=== PATIENT | female | born 1980 | race Caucasian/White ===

== ENCOUNTER → 2017-05-01 | Outpatient (CLI) | payer SELFPAY | LOC: BHSO 12:52 | DX: F41.0 Panic disorder [episodic paroxysmal anxiety] (principal) | CPT/HCPCS: 90791-AI ==

== ENCOUNTER → 2017-10-19 | Outpatient (CLI) | payer BC | LOC: BHSO 08:04 | DX: F33.1 Major depressive disorder, recurrent, moderate (principal) | CPT/HCPCS: G0463 ==

== ENCOUNTER → 2017-11-05 | Outpatient (CLI) | payer BC | LOC: BHSO 15:58 | DX: F41.1 Generalized anxiety disorder (principal) ==

== ENCOUNTER → 2017-11-12 | Outpatient (CLI) | payer BC | LOC: BHSO 08:01 | DX: F41.1 Generalized anxiety disorder (principal) ==

== ENCOUNTER → 2017-11-26 | Outpatient (CLI) | payer BC | LOC: BHSO 08:03 | DX: F33.41 Major depressive disorder, recurrent, in partial remission (principal) | CPT/HCPCS: G0463 ==

== ENCOUNTER → 2017-12-25 | Outpatient (CLI) | payer BC | LOC: BHSO 08:02 | DX: F40.10 Social phobia, unspecified (principal) ==

== ENCOUNTER → 2018-01-22 | Outpatient (CLI) | payer BC | LOC: BHSO 08:04 | DX: F40.10 Social phobia, unspecified (principal) ==

== ENCOUNTER → 2018-02-05 | Outpatient (CLI) | payer BC | LOC: BHSO 08:21 | DX: F41.1 Generalized anxiety disorder (principal) | CPT/HCPCS: G0463 ==

== ENCOUNTER → 2018-02-12 | Outpatient (CLI) | payer BC | LOC: BHSO 08:42 | DX: F40.10 Social phobia, unspecified (principal) ==

== ENCOUNTER → 2018-03-05 | Outpatient (CLI) | payer BC | LOC: BHSO 08:02 | DX: F40.10 Social phobia, unspecified (principal) ==

== ENCOUNTER → 2018-04-09 | Outpatient (CLI) | payer BC | LOC: BHSO 08:04 | DX: F40.10 Social phobia, unspecified (principal) ==

== ENCOUNTER → 2018-04-30 | Outpatient (CLI) | payer BC | LOC: BHSO 08:02 | DX: F40.10 Social phobia, unspecified (principal) ==

== ENCOUNTER → 2018-05-14 | Outpatient (CLI) | payer BC | LOC: BHSO 08:22 | DX: F33.1 Major depressive disorder, recurrent, moderate (principal) | CPT/HCPCS: G0463 ==

== ENCOUNTER → 2018-05-28 | Outpatient (CLI) | payer BC | LOC: BHSO 08:01 | DX: F40.10 Social phobia, unspecified (principal) ==

== ENCOUNTER → 2018-06-11 | Outpatient (CLI) | payer BC | LOC: BHSO 08:08 | DX: F40.10 Social phobia, unspecified (principal) ==

== ENCOUNTER → 2018-07-02 | Outpatient (CLI) | payer BC | LOC: BHSO 08:00 | DX: F41.0 Panic disorder [episodic paroxysmal anxiety] (principal) ==

== ENCOUNTER → 2018-07-16 | Outpatient (CLI) | payer BC | LOC: BHSO 08:26 | DX: F33.41 Major depressive disorder, recurrent, in partial remission (principal) | CPT/HCPCS: G0463 ==

== ENCOUNTER → 2018-08-06 | Outpatient (CLI) | payer BC | LOC: BHSO 08:05 | DX: F40.10 Social phobia, unspecified (principal) ==

== ENCOUNTER → 2018-08-20 | Outpatient (CLI) | payer BC | LOC: BHSO 08:12 | DX: F40.10 Social phobia, unspecified (principal) ==

== ENCOUNTER → 2018-08-27 | Outpatient (CLI) | payer BC | LOC: BHSO 08:32 | DX: F40.10 Social phobia, unspecified (principal) ==

== ENCOUNTER → 2018-09-10 | Outpatient (CLI) | payer BC | LOC: BHSO 08:06 | DX: F41.1 Generalized anxiety disorder (principal) ==

== ENCOUNTER → 2018-09-16 | Outpatient (CLI) | payer BC | LOC: BHSO 08:04 | DX: F33.1 Major depressive disorder, recurrent, moderate (principal) ==

== ENCOUNTER → 2018-10-08 | Outpatient (CLI) | payer BC | LOC: BHSO 08:04 | DX: F40.10 Social phobia, unspecified (principal) ==

== ENCOUNTER → 2018-10-29 | Outpatient (CLI) | payer BC | LOC: BHSO 08:01 | DX: F40.10 Social phobia, unspecified (principal) ==

== ENCOUNTER 2018-11-20 18:24 | Emergency (ER) | payer BC ==
[~2018-11-20] VITALS: Ht 177.8 cm; Wt 63.6 kg
[2018-11-20 18:26] VITALS: TEMP 97.5
[2018-11-20 18:46] LABS: COLLECTION METHOD CLEAN CATCH
[2018-11-20 18:52] LABS: PH 5 (5-8); SQUAMOUS EPITHELIAL None Seen /hpf; URINE APPEARANCE Clear; URINE BACTERIA None Seen /hpf; URINE BILIRUBIN Negative (NEGATIVE); URINE BLOOD Negative (NEGATIVE); URINE COLOR Straw; URINE GLUCOSE Negative (NEGATIVE); URINE KETONE Negative (NEGATIVE); URINE LEUKOCYTE ESTERASE Negative (NEGATIVE); URINE NITRATE Negative (NEGATIVE); URINE PROTEIN(semi-quant) Negative (NEGATIVE); URINE RBC 0-2 /hpf; URINE UROBILINOGEN Negative (NEGATIVE)
[2018-11-20 19:07] LABS: TRICYCLIC ANTIDEPRESS URINE NEGATIVE
[2018-11-20 19:17] LABS: BASO # 0.1 (0.0-0.2); BASO % 1.4 % (0.0-2.0); EOS # 0.1 (0.0-0.7); EOS % 1.1 % (0-4.0); GRAN # 3.6 (1.4-6.5); GRAN % 54.5 % (42.2-75.2); HEMOGLOBIN 12.3 g/dl (12.5-16.0); LYMPH # 2.5 (1.2-3.4); LYMPH % 37.5 % (20.0-51.0); MEAN CELL VOLUME 90 fl (80.0-100.0); MEAN CORPUSCULAR HEMOGLOBIN 30 pg (27.0-31.0); MEAN CORPUSCULAR HGB CONC 33 g/dl (33.0-37.0); MEAN PLATELET VOLUME 9.6 fl (7.4-10.4); MONO # 0.3 (0.1-0.6); PLATELET COUNT 402 K/mm3 (130-400); RED BLOOD COUNT 4.13 M/mm3 (4.10-5.30); REDCELL DISTRIBUTION WIDTH-CV 16.3 % (11.5-14.5)
[2018-11-20 19:28] LABS: ALANINE AMINOTRANSFERASE 13 U/L (9-52); ALBUMIN 4.7 gm/dL (3.5-5.0); ALCOHOL(ethanol),MEDICAL 234 mg/dL; ALKALINE PHOSPHATASE 94 U/L (50-136); ANION GAP 11 mmol/L (7-16); AST,SGOT 26 U/L (15-37); BILIRUBIN,TOTAL 0.2 mg/dL (0.0-1.0); BLOOD UREA NITROGEN 9 mg/dL (7-17); CALCIUM 9.2 mg/dL (8.4-10.2); CARBON DIOXIDE 26 mmol/L (22-30); CHLORIDE 107 mmol/L (98-107); CREATININE, serum 0.66 (0.52-1.25); GLUCOSE 86 mg/dL (74-106); POTASSIUM 4.6 mmol/L (3.4-5.0); SODIUM 144 mmol/L (137-145); TOTAL PROTEIN 8.3 gm/dL (6.4-8.2)
[2018-11-20 19:31] LABS: ACETAMINOPHEN < 10 ug/mL (10-30); SALICYLATE < 1.0 mg/dL
[2018-11-20] MEDS ORDERED: KLONOPIN 1MG1 MG PO (20:26)
[2018-11-20] MEDS ORDERED: ABILIFY5 MG PO (20:27)
[2018-11-20] MEDS ORDERED: LAMICTAL 100MG100 MG PO (20:27)
[2018-11-20] MEDS ORDERED: SEROQUEL50 MG PO (20:27)
[2018-11-20] MEDS ORDERED: EFFEXOR-XR150 MG PO (20:27)
[2018-11-21 04:27] VITALS: BP 107/64; PULSE 94
== END 2018-11-21 04:27 | disposition home or self-care (01) ==
LOC: COL.ER 18:24
PROVIDERS: Emergency Medicine
DX: R45.851 Suicidal ideations (principal); F10.129 Alcohol abuse with intoxication, unspecified; F32.9 Major depressive disorder, single episode, unspecified; F17.210 Nicotine dependence, cigarettes, uncomplicated; F12.90 Cannabis use, unspecified, uncomplicated; Y90.7 Blood alcohol level of 200-239 mg/100 ml

== ENCOUNTER → 2018-11-23 | Outpatient (CLI) | payer BC ==
[~2018-11-23] MED LIST: ABILIFY5 MG PO; EFFEXOR-XR150 MG PO; KLONOPIN 1MG1 MG PO; LAMICTAL 100MG100 MG PO; SEROQUEL50 MG PO
== END ==
LOC: BHSO 14:04
DX: F33.41 Major depressive disorder, recurrent, in partial remission (principal)
CPT/HCPCS: G0463

== ENCOUNTER → 2018-12-17 | Outpatient (CLI) | payer BC | LOC: BHSO 08:02 | DX: F33.41 Major depressive disorder, recurrent, in partial remission (principal) | CPT/HCPCS: G0463 ==

== ENCOUNTER → 2018-12-31 | Outpatient (CLI) | payer BC | LOC: BHSO 08:05 | DX: F40.10 Social phobia, unspecified (principal) ==

== ENCOUNTER → 2019-01-19 | Outpatient (CLI) | payer BC | LOC: BHSO 08:04 | DX: F40.10 Social phobia, unspecified (principal) ==

== ENCOUNTER 2019-01-25 14:24 | Emergency (ER) | payer BC ==
[~2019-01-25] VITALS: Ht 175.3 cm; Wt 63.6 kg
[2019-01-25 14:37] VITALS: TEMP 97.9
[2019-01-25] MEDS ORDERED: ABILIFY 10MG TA10 MG PO (15:20)
[2019-01-25] MEDS ORDERED: EFFEXOR 75M75 MG/TAB PO (15:21)
[2019-01-25] MEDS ORDERED: ATARAX50 MG PO (15:23)
[2019-01-25] MEDS ORDERED: ATIVAN 0.50.5 MG/TAB PO (15:23)
[2019-01-25] MEDS ORDERED: LAMICTAL 100MG100 MG PO (15:24)
[2019-01-25] MEDS ORDERED: SEROQUEL50 MG PO (15:25)
[2019-01-25] MEDS ORDERED: CYMBALTA 30MG30 MG PO (15:26)
[2019-01-25 15:44] LABS: COLLECTION METHOD CLEAN CATCH
[2019-01-25 15:48] LABS: BASO % 0.7 % (0.0-2.0); EOS # 0.1 (0.0-0.7); GRAN % 51.5 % (42.2-75.2); HEMOGLOBIN 12.5 g/dl (12.5-16.0); LYMPH # 2.2 (1.2-3.4); LYMPH % 37.8 % (20.0-51.0); MEAN CELL VOLUME 86 fl (80.0-100.0); MEAN CORPUSCULAR HEMOGLOBIN 29 pg (27.0-31.0); MEAN CORPUSCULAR HGB CONC 34 g/dl (33.0-37.0); MEAN PLATELET VOLUME 9.5 fl (7.4-10.4); MONO # 0.5 (0.1-0.6); MONO % 8.8 % (1.7-9.3); PLATELET COUNT 358 K/mm3 (130-400); RED BLOOD COUNT 4.27 M/mm3 (4.10-5.30); REDCELL DISTRIBUTION WIDTH-CV 14.3 % (11.5-14.5)
[2019-01-25 15:52] LABS: HEMATOCRIT 36.7 % (37.0-47.0)
[2019-01-25 15:57] LABS: TRICYCLIC ANTIDEPRESS URINE NEGATIVE
[2019-01-25 15:59] LABS: ALANINE AMINOTRANSFERASE 9 U/L (9-52); ALBUMIN 4.2 gm/dL (3.5-5.0); ALKALINE PHOSPHATASE 107 U/L (50-136); ANION GAP 11 mmol/L (7-16); AST,SGOT 34 U/L (15-37); BILIRUBIN,TOTAL 0.8 mg/dL (0.0-1.0); BLOOD UREA NITROGEN 13 mg/dL (7-17); CALCIUM 9.4 mg/dL (8.4-10.2); CARBON DIOXIDE 24 mmol/L (22-30); CHLORIDE 104 mmol/L (98-107); CREATININE, serum 0.57 (0.52-1.25); GLUCOSE 106 mg/dL (74-106); SODIUM 139 mmol/L (137-145); TOTAL PROTEIN 7.7 gm/dL (6.4-8.2)
[2019-01-25 16:01] LABS: ACETAMINOPHEN < 10 ug/mL (10-30); ALCOHOL(ethanol),MEDICAL < 10 mg/dL; SALICYLATE < 1.0 mg/dL
[2019-01-25 16:11] LABS: PH 6 (5-8); URINE APPEARANCE Hazy; URINE BACTERIA None Seen /hpf; URINE BILIRUBIN Negative (NEGATIVE); URINE BLOOD 3+ (NEGATIVE); URINE COLOR Yellow; URINE GLUCOSE Negative (NEGATIVE); URINE KETONE 1+ (NEGATIVE); URINE LEUKOCYTE ESTERASE Trace (NEGATIVE); URINE NITRATE Negative (NEGATIVE); URINE PROTEIN(semi-quant) 1+ (NEGATIVE); URINE RBC >50 /hpf; URINE UROBILINOGEN Negative (NEGATIVE)
[2019-01-25 18:20] VITALS: BP 136/85; PULSE 92
== END 2019-01-25 18:20 | disposition home or self-care (01) ==
LOC: COL.ER 14:24
PROVIDERS: Emergency Medicine
DX: S61.512A Laceration without foreign body of left wrist, initial encounter (principal); S61.511A Laceration without foreign body of right wrist, initial encounter; F32.9 Major depressive disorder, single episode, unspecified; X78.9XXA Intentional self-harm by unspecified sharp object, initial encounter

== ENCOUNTER → 2019-02-09 | Outpatient (CLI) | payer BC ==
[~2019-02-09] MED LIST changes: +ABILIFY 10MG TA10 MG PO; +ATARAX50 MG PO; +ATIVAN 0.50.5 MG/TAB PO; +CYMBALTA 30MG30 MG PO; +EFFEXOR 75M75 MG/TAB PO
== END ==
LOC: BHSO 14:00
DX: F40.10 Social phobia, unspecified (principal)

== ENCOUNTER → 2019-02-11 | Outpatient (CLI) | payer BC | LOC: BHSO 08:02 | DX: F31.81 Bipolar II disorder (principal) | CPT/HCPCS: G0463 ==

== ENCOUNTER → 2019-02-24 | Outpatient (CLI) | payer BC | LOC: BHSO 11:03 | DX: F33.1 Major depressive disorder, recurrent, moderate (principal) ==

== ENCOUNTER → 2019-03-14 | Outpatient (CLI) | payer BC | LOC: BHSO 11:00 | DX: F40.10 Social phobia, unspecified (principal) ==

== ENCOUNTER → 2019-05-13 | Outpatient (CLI) | payer SELFPAY | LOC: BHSO 08:00 | DX: F31.81 Bipolar II disorder (principal) | CPT/HCPCS: G0463 ==

== ENCOUNTER → 2019-09-28 | Outpatient (CLI) | payer SELFPAY | LOC: BHSO 09:53 | DX: F31.81 Bipolar II disorder (principal) | CPT/HCPCS: G0463 ==

== ENCOUNTER → 2020-05-22 | Outpatient (CLI) | payer BC | LOC: BHSO 14:37 | DX: F31.81 Bipolar II disorder (principal) | CPT/HCPCS: G0463 ==

== ENCOUNTER → 2023-12-01 | Outpatient (CLI) | payer BC | LOC: COL.RAD 13:36 | DX: D25.1 Intramural leiomyoma of uterus (principal); N83.201 Unspecified ovarian cyst, right side ==